=== PATIENT | female | born 1955 | race Caucasian/White ===

== ENCOUNTER 2021-06-24 12:50 | Emergency (ER) | payer MEDICARE ==
[2021-06-24] MEDS ORDERED: Acetaminophen 500 MG TAB ONE (15:27)
[2021-06-24] MEDS ORDERED: Ketorolac Tromethamine 30 MG/ML VIAL ONE (15:27)
[2021-06-24] MEDS ORDERED: Morphine 4 MG/ML VIAL ONE (15:27)
== END 2021-06-24 16:41 | disposition home or self-care (01) ==
LOC: ERS 12:50
DX: S39.012A Strain of muscle, fascia and tendon of lower back, initial encounter (principal); R03.0 Elevated blood-pressure reading, without diagnosis of hypertension
CPT/HCPCS: 96372; 99283; J1885; J2270